=== PATIENT | male | born 1960 | race Caucasian/White ===

== ENCOUNTER → 2018-04-13 | Outpatient (CLI) | payer OTHER | END | disposition home or self-care (01) | LOC: CARD 11:57 | DX: I51.7 Cardiomegaly (principal) ==

== ENCOUNTER → 2022-11-01 | Day surgery (SDC) | payer MEDICAID ==
[~2022-11-01] VITALS: Ht 180.3 cm; Wt 128.4 kg
[2022-11-01] VITALS (7 sets, daily range): BP systolic 93–140; BP diastolic 56–88
[~2022-11-01] MED LIST: HYDR25T PO; ISO D3 2,000 U1 EACH PO; JARDIANCE25 MG PO; LEADER ASPIRIN81 MG PO; LIPITOR20 MG PO; METFORMIN HYD1000 MG PO; TRULICITY1.5 MG/0.5 SC; ZESTRIL10 MG PO
== END | disposition home or self-care (01) ==
LOC: SDC 10-21 10:15
PROVIDERS: ATTEND Surgery
DX: R19.5 Other fecal abnormalities (principal); D12.4 Benign neoplasm of descending colon; D12.8 Benign neoplasm of rectum; I10 Essential (primary) hypertension; E11.9 Type 2 diabetes mellitus without complications; Z79.899 Other long term (current) drug therapy

== ENCOUNTER → 2022-11-19 | Outpatient (CLI) | payer MEDICAID | END | disposition home or self-care (01) | LOC: MRI 01:28 | PROVIDERS: ATTEND Surgery | DX: K62.9 Disease of anus and rectum, unspecified (principal); K40.90 Unilateral inguinal hernia, without obstruction or gangrene, not specified as recurrent ==